=== PATIENT | female | born 1940 | race Caucasian/White ===

== ENCOUNTER 2022-12-02 08:00 | Outpatient (CLI) | payer MEDICARE, BC ==
--- NOTE | 2022-12-03 07:07 | XRAY Report ---
PROCEDURE: Wrist 4 View RT INDICATIONS: RIGHT WRIST PAIN TECHNIQUE: 4 views of the wrist were acquired. COMPARISON: None. FINDINGS: Bones: Minimally displaced fracture of the distal ulnar shaft. Scaphoid view: Unremarkable Soft tissues: No suspicious soft tissue calcifications or masses. IMPRESSION: Mildly displaced fracture of the distal ulnar shaft. Reviewed by: James Roberts on 12/02/2022 1:38 PM PDT Approved by: James Roberts on 12/02/2022 1:38 PM PDT Station ID: [id number]
== END 2022-12-02 23:59 | disposition home or self-care (01) ==
LOC: DI.S 08:00
PROVIDERS: ATTEND Emergency Medicine
DX: S52.201A Unspecified fracture of shaft of right ulna, initial encounter for closed fracture (principal)

== ENCOUNTER 2022-12-23 10:21 | Outpatient (CLI) | payer MEDICARE, BC ==
--- NOTE | 2022-12-23 14:36 | XRAY Report ---
PROCEDURE: Wrist 3 View RT INDICATIONS: FX RIGHT ULNA TECHNIQUE: 3 views of the wrist were acquired. COMPARISON: 12/02/2022 FINDINGS: The bones appear demineralized. Redemonstrated oblique fracture of the distal ulna, mildly displaced and now with mild volar angulation, specimen appears increased since the prior exam. Adjacent bony ca llus is present. Newly apparent lucency at the distal radius is suspicious for an acute or subacute m inimally displaced fracture not definitively visible on the prior exam. IMPRESSION: 1. Mild increase in displacement and angulation of the previously demonstrated distal ulnar fracture. 2. Newly apparent lucency/cortical irregularity at the distal radius as the possibility of an acute o r subacute minimally displaced distal radius fracture. Reviewed by: Adam Mccarty MD on 12/23/2022 2:35 PM PDT Approved by: Adam Mccarty MD on 12/23/2022 2:35 PM PDT Station ID: [id number]
== END 2022-12-23 10:22 | disposition home or self-care (01) ==
LOC: DI.S 10:21
PROVIDERS: ATTEND Physician Assistant
DX: S52.621A Torus fracture of lower end of right ulna, initial encounter for closed fracture (principal)

== ENCOUNTER 2023-01-12 08:00 | Outpatient (CLI) | payer MEDICARE, BC ==
--- NOTE | 2023-01-12 18:54 | XRAY Report ---
PROCEDURE: Wrist 3 View RT INDICATIONS: FRACTURE OF DISTAL RADIUS TECHNIQUE: 3 views of the wrist were acquired. COMPARISON: 12/23/2022 FINDINGS: Bones: The bones appear demineralized. Similar alignment of the previously demonstrated distal ulnar fracture, increased bony callus compared to before. Similar appearance of the distal radius with nafisa ency that could indicate a subacute fracture not substantially changed. Soft tissues: No suspicious soft tissue calcifications . IMPRESSION: Similar alignment of the previously demonstrated distal ulnar fracture, increased bony callus compare d to before. Similar appearance of the distal radius with lucency that could indicate a subacute frac ture not substantially changed. Reviewed by: Adam Mccarty MD on 01/12/2023 6:53 PM PDT Approved by: Adam Mccarty MD on 01/12/2023 6:53 PM PDT Station ID: [id number]
== END 2023-01-12 23:59 | disposition home or self-care (01) ==
LOC: DI.S 08:00
PROVIDERS: ATTEND Physician Assistant
DX: S52.501D Unspecified fracture of the lower end of right radius, subsequent encounter for closed fracture with routine healing (principal); S52.601D Unspecified fracture of lower end of right ulna, subsequent encounter for closed fracture with routine healing